=== PATIENT | male | born 1960 | race Asian ===

== ENCOUNTER 2018-09-13 13:12 | Inpatient (IN) | payer MEDICAID ==
[~2018-09-13] VITALS: Ht 149.9 cm; Wt 48.5 kg
[2018-09-13 13:13] VITALS: BP 139/87
--- NOTE | 2018-09-13 13:24 | NUR ---
PT BIB FAMILY C/O THROAT PAIN X2 HOURS. PT REPORTS FALLING 2FEET ON LADER AND LANDING ON NECK. SHARP PAIN UPON SWALLOWING AND TURNING NECK AT 8/10; HOARSED VOICE, TRACHIA MIDLINE, EYRTHEMA PRESENT, NO SWELLING OR BRUISING, NO ACCESSORY MUSCLE USE NOTED. VSS. ER MD TO SEE PT. HX--SPIANAL BIFIDA, SCOLIOSIS RX--NONE
[2018-09-13] MEDS ORDERED: NACL 0.9% 500 ML IV ONE (14:45)
[2018-09-13] MEDS ORDERED: KETOROLAC 30 MG/ML VIAL IVP ONE (14:45)
[2018-09-13] MEDS ORDERED: KETOROLAC 60 MG/2 ML VIAL IM ONE (14:45)
--- NOTE | 2018-09-13 14:52 | NUR ---
LAB AT BEDSIDE
[2018-09-13 15:03] LABS: BASOPHILS # (AUTO) 0.1 K/uL (0.00-0.22); BASOPHILS % (AUTO) 0.7 % (0.0-2.0); EOSINOPHILS # (AUTO) 0.1 K/uL (0-0.4); EOSINOPHILS % (AUTO) 1.3 % (0.0-4.0); HEMATOCRIT 44.7 % (36-52); HEMOGLOBIN 15.2 g/dL (12.0-18.0); LYMPHOCYTES # (AUTO) 2.7 K/uL (2.0-11.5); LYMPHOCYTES % (AUTO) 27.4 % (20.5-51.1); MEAN CORPUSCULAR HEMOGLOBIN 32 pg (27-31); MEAN CORPUSCULAR HGB CONC 34 g/dL (33-37); MONOCYTES # (AUTO) 0.8 K/uL (0.8-1.0); MONOCYTES % (AUTO) 8.3 % (1.7-9.3); NEUTROPHILS # (AUTO) 6.2 K/uL (1.8-7.7); NEUTROPHILS % (AUTO) 62.3 % (42.2-75.2); PLATELET COUNT (AUTO) 226 K/uL (140-450); RED BLOOD CELL COUNT(AUTO) 4.71 MIL/uL (4.20-6.10); RED CELL DISTRIBUTION WIDTH 13.2 % (11.6-13.7)
--- NOTE | 2018-09-13 15:26 | NUR ---
PT RESTING IN BED, VSS, FAMILY MEMEBER AT BEDSIDE. PT AIRWAY PATENT, RR EVEN, LUNG SOUNDS CLEAR. PT REPORTS THROAT PAIN AT 5/10
[2018-09-13 15:30] LABS: ALBUMIN 3.6 g/dL (3.4-5.0); ANION GAP 12.4 (8-16); CARBON DIOXIDE 27.4 mmol/L (21-32); CREATININE 0.9 mg/dL (0.7-1.3); POTASSIUM 3.8 mmol/L (3.5-5.1); TOTAL BILIRUBIN 0.6 mg/dL (0.0-1.0)
[2018-09-13] MEDS ORDERED: HYDROcodone/APAP 7.5/325 MG 1 TAB PO PRN (16:05)
[2018-09-13] MEDS ORDERED: ONDANSETRON 4 MG/2 ML VIAL IM/IVP PRN (16:05)
[2018-09-13] MEDS ORDERED: MORPHINE SULFATE 2 MG/ML SYR IVP PRN (16:05)
--- NOTE | 2018-09-13 16:17 | NUR ---
PT AMB TO RESTROOM WITH STEADY GAIT FOR URINE SAMPLE
--- NOTE | 2018-09-13 16:21 | NUR ---
XRAY AT BEDSIDE
[2018-09-13 16:35] LABS: PROTHROMBIN TIME 9.9 secs (10.8-13.4)
[2018-09-13 16:43] LABS: FREE T4 (FREE THYROXINE) 0.86 ng/dL (0.76-1.46); PHOSPHORUS 3.3 mg/dL (2.5-4.9); THYROID STIMULATING HORMONE 0.63 uIU/mL (0.34-3.74)
[2018-09-13 16:45] VITALS: BP 143/84
--- NOTE | 2018-09-13 16:45 | NUR ---
Patient will be admitted to care of [facility]. Admited to TELE VIA GURNEY WITH VSS. Will go to room 112A. Belongings list completed. Report to TASNEEM CAZARES.
--- NOTE | 2018-09-13 16:45 | NUR ---
RECEIVED BEDSIDE REPORT FROM CARDIAC CATH LAB MANAGER KIN. PT STABLE, AWAKE, ALERT AND ORIENTED X4. NO SIGNS OF DISTRESS NOTED. PT STATES 3/10 THROAT PAIN BUT TOLERABLE. NO REDNESS, SWELLING, OR INFLAMMATION NOTED ON IV SITE. CALL [place]O WITHIN REACH. BED IN LOWEST POSITION. FAMILY AT BEDSIDE. SAFETY MEASURES IN PLACE. PLAN OF CARE REVIEWED.
--- NOTE | 2018-09-13 17:10 | NUR ---
FAMILY AT THE BEDSIDE.
[2018-09-13 17:20] LABS: APPEARANCE,URINE CLEAR (CLEAR); BILIRUBIN,URINE NEGATIVE (NEGATIVE); BLOOD, URINE NEGATIVE (NEGATIVE); COLOR,URINE YELLOW (YELLOW); LEUKOCYTE ESTERASE ,URINE NEGATIVE (NEGATIVE); NITRITE, URINE NEGATIVE (NEGATIVE); PH,URINE 7.5 (5.0-9.0); UGLUCOSE NEGATIVE (NEGATIVE)
[2018-09-13 17:39] LABS: BARBITURATE, URINE NEGATIVE ng/ml (NEG <=200); BENZODIAZEPINE, URINE NEGATIVE ng/mL (NEG <=200); CANNABINOID, URINE NEGATIVE ng/mL (NEG <=50); COCAINE, URINE NEGATIVE ng/mL (NEG <=300); OPIATE, URINE NEGATIVE ng/mL (NEG <=2000); PHENCYCLIDINE SCREEN,URINE NEGATIVE ng/mL (NEG <=25)
[2018-09-13] MEDS: DEXT 5% / NACL 0.45% 1,000 ML IV SCH (18:13)
--- NOTE | 2018-09-13 18:15 | NUR ---
IVF STARTED PER MD ORDER.
[2018-09-13] MEDS: KETOROLAC 15 MG/ML VIAL IVP PRN (18:39)
--- NOTE | 2018-09-13 18:39 | NUR ---
PT COMPLAINED OF 4/10 NECK PAIN. PT REFUSED MORPHINE. PER DR LOPEZ, JERMAINE TO GIVE TORADOL. PRN TORADOL ADMINISTERED. PT TOLERATED WELL. NO OTHER NEEDS AT THIS TIME. Addendum: 09/13/18 at 1855 by Sumaya Gonzales RN SCD'S PUT ON PT.
--- NOTE | 2018-09-13 19:10 | NUR ---
ENDORSED PT TO RN JESSICA FOR CONTINUITY OF CARE. PT STABLE.
--- NOTE | 2018-09-13 19:15 | NUR ---
RECEIVED FROM AM RN IN BED AWAKE AND ALERT. ABLE TO ANSWER QUESTIONS WELL IN [place]. NO SOB. DENIES PAIN AT THIS TIME. CALL LIGHT WITH IN REACH. CARE PLANS FOR THE NIGHT DISCUSSED WITH HIM. DX. TRACHEAL INJURY FROM S/P FALL OUTSIDE OF FACILITY. IVF SITE INTACT AND PATENT. NO INFILTRATION NOTED. ENCOURAGED TO USE CALL LIGHT FOR HELP OR IF IN PAIN.
[2018-09-13 20:06] VITALS: BP 143/84
--- NOTE | 2018-09-13 20:28 | NUR ---
INSTRUCTED PT. TO USE CALL LIGHT FOR HELP OR IF HE HAS SOB OR PAIN. CALL LIGHT WITH IN REACH . "OK" A/O X 4. PT. PROVIDED WITH WARM BLANKET REQUESTED. GOOD AFFECT. NO RESTLESSNESS. DENIES ANY PAIN AT THIS TIME. BED ALARM ON.
--- NOTE | 2018-09-13 21:35 | NUR ---
CHECKED ON PT. NO RESTLESSNESS. SLEEPING. ON TELEMETRY MONITORING. 02 SAT AT 99 % ROOM AIR.
--- NOTE | 2018-09-13 22:00 | NUR ---
SLEEPING. NO RESTLESSNESS. CALL LIGHT AT BEDSIDE. TELEMETRY MONITORING. PLACED ON 02 SAT MONITORING VIA VITAL SIGN MACHINE. 02 SAT AT THIS TIME 99% ROOM AIR.
--- NOTE | 2018-09-13 23:06 | NUR ---
CHECKED ON PT. 02 SAT ROOM AIR 99 %. NO COMPLAINTS OF PAIN DONE.
--- NOTE | 2018-09-14 00:44 | NUR ---
VITAL SIGN TAKEN. SLEEPING. WOKE UP AND ANSWERED WELL WHEN VS TAKEN. ABLE TO APPROPRIATELY CORRESPOND WITH ME. WENT BACK TO SLEEP AFTER. TELEMETRY MONITORING. 02 SAT AT 99% ROOM AIR.
[2018-09-14 00:46] VITALS: BP 124/75
--- NOTE | 2018-09-14 03:08 | NUR ---
PT. SLEEPING WELL. EASILY WAKES UP WHEN TOUCHED. ASKED HIM IF HE IS COMFORTABLE. "IM OK" WENT BACK TO SLEEP. ABLE TO VERBALIZE APPROPRIATELY. CALL LIGHT WITH IN REACH.
--- NOTE | 2018-09-14 03:44 | NUR ---
VITAL SIGN TAKEN . WOKE UP EASILY FROM SLEEP. ABLE TO VERBALIZE SIMPLE NEEDS WELL. PT. ASSISTED TO RESTROOM BY INVESTMENT BANKING ASSOCIATE TO URINATE. ROM X 4. CLEAR SPEECH. CALL LIGHT WITH IN REACH. TELEMETRY MONITORING. PT. HAS TENDENCY TO GO BRADYCARDIA FROM 40'S WHEN SLEEPING THEN GOES BACK TO 50'S AND TO 70'S WHEN AWAKENED. NO SOB. TOLERABLE THROAT PAIN PER PT. BILATERAL SEQUENTIALS IN PLACE TO LOWER EXTREMITIES.
[2018-09-14 04:04] VITALS: BP 110/62
--- NOTE | 2018-09-14 05:07 | NUR ---
RESIDENT MD AWARE OF PT.'S GOING BRADYCARDIC DURING SLEEP. NO FURTHER ORDERS. PT. NO SOB. NO RESTLESSNESS THIS SHIFT. ABLE TO USE CALL LIGHT FOR HELP AND ABLE TO VERBALIZE NEEDS WELL TO CNAS AND NURSE. ABLE TO CARRY CONVERSATION WELL. TELEMETRY MONITORING.
[2018-09-14] MEDS: DEXT 5% / NACL 0.45% 1,000 ML IV SCH (05:27)
--- NOTE | 2018-09-14 06:35 | NUR ---
PT. AWAKE AT THIS TIME. NO COMPLAINTS DONE. ABLE TO VERBALIZE WITH ME WELL. NO SOB. CALL LIGHT WITH IN REACH. TELEMETRY MONITORING. WILL ENDORSE TO NEXT RN FOR CONTINUITY OF CARE.
--- NOTE | 2018-09-14 07:06 | NUR ---
RECEIVED HAND OFF REPORT FROM JOINT SUPERVISOR NURSE PT IS AWAKE IN BED PT IS STABLE AND IN NO APPARENT DISTRESS. ALL SAFETY MEASURES ARE IN PLACE WILL CONTINUE TO MONITOR.
[2018-09-14 07:37] LABS: BASOPHILS % (AUTO) 0.5 % (0.0-2.0); EOSINOPHILS # (AUTO) 0.4 K/uL (0-0.4); EOSINOPHILS % (AUTO) 5.6 % (0.0-4.0); HEMATOCRIT 41.7 % (36-52); HEMOGLOBIN 14.2 g/dL (12.0-18.0); LYMPHOCYTES # (AUTO) 2.3 K/uL (2.0-11.5); LYMPHOCYTES % (AUTO) 31.9 % (20.5-51.1); MEAN CORPUSCULAR HEMOGLOBIN 33 pg (27-31); MEAN CORPUSCULAR HGB CONC 34 g/dL (33-37); MEAN CORPUSCULAR VOLUME 96.1 fL (80-94); MONOCYTES # (AUTO) 0.7 K/uL (0.8-1.0); MONOCYTES % (AUTO) 10.1 % (1.7-9.3); NEUTROPHILS # (AUTO) 3.7 K/uL (1.8-7.7); NEUTROPHILS % (AUTO) 51.9 % (42.2-75.2); PLATELET COUNT (AUTO) 205 K/uL (140-450); RED BLOOD CELL COUNT(AUTO) 4.34 MIL/uL (4.20-6.10); RED CELL DISTRIBUTION WIDTH 13.2 % (11.6-13.7); WHITE BLOOD COUNT (AUTO) 7.2 K/uL (4.8-10.8)
[2018-09-14 08:00] VITALS: BP 141/72
--- NOTE | 2018-09-14 08:23 | NUR ---
SPOKE WITH DR. LEEROY FELICIANO SAID THAT IT IS OK FOR THE PT TO HAVE PO CONTRAST FOR CT SCAN EVEN THOUGH PT IS NPO
[2018-09-14 08:33] LABS: MAGNESIUM 2.1 mg/dL (1.8-2.4); PHOSPHORUS 3.6 mg/dL (2.5-4.9)
[2018-09-14 08:39] LABS: ANION GAP 10.8 (8-16); CARBON DIOXIDE 27.1 mmol/L (21-32); CREATININE 0.9 mg/dL (0.7-1.3); POTASSIUM 3.9 mmol/L (3.5-5.1)
--- NOTE | 2018-09-14 09:00 | NUR ---
PT LEFT FOR CT PT IS SALINE LOCKED PT IS STABLE AND IN NO APPARENT DISTRESS.
--- NOTE | 2018-09-14 09:45 | NUR ---
PT BACK FROM CT SCAN PT IS IN BED. PT IS STABLE IN BED AND IN NO APPARENT DISTRESS. ALL SAFETY MEASURES ARE IN PLACE. WILL CONTINUE TO MONITOR.
--- NOTE | 2018-09-14 11:25 | NUR ---
PT IS AWAKE IN BED PT IS STABLE AND IN NO APPARENT DISTRESS. ALL SAFETY MEASURES ARE IN PLACE, WILL CONTINUE TO MONITOR.
[2018-09-14 12:00] VITALS: BP 123/81
--- NOTE | 2018-09-14 13:05 | NUR ---
FREQUENT ROUNDING PT IS AWAKE IN BED PT IS STABLE AND APPEARS IN NO APPARENT DISTRESS. ALL SAFETY MEASURES ARE IN PLACE. WILL CONTINUE TO MONITOR.
--- NOTE | 2018-09-14 15:06 | NUR ---
FREQUENT ROUNDING PT IS AWAKE IN BED PT IS STABLE AND IN NO APPARENT DISTRESS. ALL SAFETY MEASURES ARE IN PLACE WILL CONTINUE TO MONITOR.
[2018-09-14] MEDS: NACL 0.9% 500 ML IV SCH ×2 (15:43→23:05)
[2018-09-14 16:00] VITALS: BP 129/74
--- NOTE | 2018-09-14 16:28 | NUR ---
DR. LOPEZ ASKED ME TO PERFORM A BEDSIDE SWALLOW EVALULATION TO SEE IF THE PATIENT CAN TOLERATE CLEAR LIQUIDS. PERFORMED SWALLOW EVALUATION. PT SWALLOWED EFFORTLESSLY AND HAD NO COMPLAINTS OF DISCOMFORT PT HAD NO COUGHING OR IRRITATION WITH SWALLOWING.
--- NOTE | 2018-09-14 17:45 | NUR ---
FREQUENT ROUNDING PT IS AWAKE IN BED PT IS STABLE AND STILL TOLERATING CLEAR LIQUID DIET. PT IS STABLE AND APPEARS IN NO APPARENT DISTRESS. ALL SAFETY MEASURES ARE IN PLACE. WILL CONTINUE TO MONITOR.
--- NOTE | 2018-09-14 19:25 | NUR ---
RECEIVED FROM AM RN IN BED SITTING UP AND WATCHING TV. VERBALIZES WELL. DENIES PAIN AT THIS TIME. STATED"TOLERABLE" REFUSED MEDICATION OFFERED FOR PAIN. ROM X 4. CLEAR SPEECH. TELEMETRY MONITORING. IVF SITE INTACT AND NO INFILTRATION. CARE PLANS FOR THE NIGHT DISCUSSED WITH HIM AND CALL LIGHT WITH IN REACH.
--- NOTE | 2018-09-14 19:25 | NUR ---
ENDORSED PT TO CAM SPECIALIST RN PT IS AWAKE PT APPEARS STABLE AND IN NO APPARENT DISTRESS, ALL SAFETY MEASURES ARE IN PLACE.
[2018-09-14 20:00] VITALS: BP 126/72
--- NOTE | 2018-09-14 21:32 | NUR ---
PT. STILL AWAKE AND WATCHING TV. GOOD AFFECT. NO COMPLAINTS . DENIES PAIN. ABLE TO VERBALIZE WELL IN [place]. A/O X 4. ROM X 4.
[2018-09-15 00:06] VITALS: BP_SYST 124; BP_SYST 130; BP_DIAS 63; BP_DIAS 70
--- NOTE | 2018-09-15 00:51 | NUR ---
STILL AWAKE AND ENCOURAGED TO SLEEP. PT. LIKES WATCHING CARTOONS IN THE TV. GOOD AFFECT. ABLE TO CARRE A CONVERSATION WELL WITH ME. SIMPLE NEEDS KNOWN WELL. STATED PAIN IN THROAT TOLERABLE. REFUSING PAIN MEDICATION.
--- NOTE | 2018-09-15 01:30 | NUR ---
PT. SLEEPING. NO RESTLESSNESS. NO SOB. TELEMETRY MONITORING. CALL LIGHT WITH IN REACH.
--- NOTE | 2018-09-15 03:00 | NUR ---
SLEEPING. NO RESTLESSNESS. CALL LIGHT WITH IN REACH. IVF SITE INTACT AND NO INFILTRATION.
[2018-09-15 04:36] VITALS: BP 132/80
--- NOTE | 2018-09-15 04:53 | NUR ---
SLEEPING WELL. NO COMPLAINTS DONE THIS SHIFT. CALL LIGHT WITH IN REACH.
--- NOTE | 2018-09-15 05:50 | NUR ---
PT. AWAKE AT THIS TIME AND WATCHING TV. NO COMPLAINTS DONE. PT. ABLE TO VERBALIZE NEEDS WELL IN [place]. A/O X 4. ROM X 4. CLEAR SPEECH. ABLE TO USE CALL LIGHT FOR HELP . WILL ENDORSE TO AM RN FOR CONTINUITY OF CARE.
--- NOTE | 2018-09-15 07:20 | NUR ---
SBAR REPORT RECEIVED FROM JESSICA AT PT BEDSIDE. PATIENT ALERT AND AWAKE. FOLLOWS COMMANDS. C/O CONTINUED NECK SORENESS, NO ACUTE DISTRESS NOTED. CALL LIGHT WITHIN REACH. DENIES SOB. WILL MEDICATE ORDERED.
[2018-09-15] MEDS: NACL 0.9% 500 ML IV SCH (07:25)
[2018-09-15 07:54] LABS: BASOPHILS % (AUTO) 0.6 % (0.0-2.0); EOSINOPHILS # (AUTO) 0.3 K/uL (0-0.4); EOSINOPHILS % (AUTO) 4.3 % (0.0-4.0); HEMATOCRIT 41.9 % (36-52); HEMOGLOBIN 14.3 g/dL (12.0-18.0); LYMPHOCYTES % (AUTO) 24.3 % (20.5-51.1); MEAN CORPUSCULAR HEMOGLOBIN 33 pg (27-31); MEAN CORPUSCULAR HGB CONC 34 g/dL (33-37); MONOCYTES # (AUTO) 0.9 K/uL (0.8-1.0); MONOCYTES % (AUTO) 10.6 % (1.7-9.3); NEUTROPHILS # (AUTO) 4.9 K/uL (1.8-7.7); NEUTROPHILS % (AUTO) 60.2 % (42.2-75.2); PLATELET COUNT (AUTO) 206 K/uL (140-450); RED BLOOD CELL COUNT(AUTO) 4.36 MIL/uL (4.20-6.10); WHITE BLOOD COUNT (AUTO) 8.2 K/uL (4.8-10.8)
[2018-09-15 08:00] VITALS: BP 122/77
[2018-09-15 08:13] LABS: ANION GAP 9.7 (8-16); CARBON DIOXIDE 28.6 mmol/L (21-32); CREATININE 0.9 mg/dL (0.7-1.3); POTASSIUM 4.3 mmol/L (3.5-5.1)
[2018-09-15 08:15] LABS: MAGNESIUM 1.9 mg/dL (1.8-2.4)
[2018-09-15] MEDS: KETOROLAC 15 MG/ML VIAL IVP PRN (08:22)
--- NOTE | 2018-09-15 08:43 | NUR ---
PATIENT HAS BEEN SCREENED AND CATEGORIZED MODERATE NUTRITION RISK. PATIENT WILL BE SEEN WITHIN 3-5 DAYS OF ADMISSION. 09/16/18[address]
[2018-09-15 09:53] LABS: T4 (THYROXINE) 6.2 ug/dL (4.5-12.0)
--- NOTE | 2018-09-15 10:20 | NUR ---
PATIENT RESTING IN BED, AWAKE AND ALERT. FOLLOWS COMMANDS. CLEAR SPEECH, DENIES PAIN/DISCOMFORT. TOLERATED PO DIET.
[2018-09-15] MEDS ORDERED: NACL 0.9% 1,000 ML IV SCH (10:58)
[2018-09-15 12:00] VITALS: BP 105/63
--- NOTE | 2018-09-15 12:16 | NUR ---
PATIENT BEING DISCHARGED HOME. DISCHARGE INSTRUCTIONS GIVEN, VERBALIZED UNDERSTANDING. DISCHARGE TEACHING WITH FOLLOW UP APPOINTMENTS GIVEN. IV REMOVED, CANULA INTACT. NO ACUTE DISTRESS NOTED. STATES PAIN AT TOLERABLE LEVEL. PATIENT'S ROOMMATE AT BEDSIDE TO TAKE PATIENT HOME, PATIENT AMBULATORY, AMBULATED TO FRONT LOBBY WITH STEADY GAIT TO CAR.
== END 2018-09-15 12:10 | disposition home or self-care (01) | DRG 143 ==
LOC: MED 13:12 → MTU 16:06
PROVIDERS: ADMIT General Practice; ATTEND General Practice
DX: T79.7XXA Traumatic subcutaneous emphysema, initial encounter (principal); Q89.8 Other specified congenital malformations; R13.10 Dysphagia, unspecified; R82.4 Acetonuria; F17.210 Nicotine dependence, cigarettes, uncomplicated; M47.892 Other spondylosis, cervical region; S19.9XXA Unspecified injury of neck, initial encounter; X58.XXXA Exposure to other specified factors, initial encounter; Y93.89 Activity, other specified; Y92.89 Other specified places as the place of occurrence of the external cause; Y99.8 Other external cause status
CPT/HCPCS: 36415; 70360; 70490; 70491; 71045; 80048; 80053; 80305; 81003; 82140; 82150; 83036; 83605; 83690; 83735; 83880; 84100; 84436; 84439; 84443; 84479; 84484; 85025; 85610; 85730; 87081; 93005; 96361; 96374; 99285; J1885; J2270; J7030; Q0092; Q9966; Q9967